=== PATIENT | male | born 1935 | race Caucasian/White ===

== ENCOUNTER → 2022-07-20 | Outpatient (CLI) | payer MEDICARE ==
[~2022-07-20] MED LIST: IOHEXOL 350 MG/ML 100ML INFUS..BTL IV ONE
== END | disposition home or self-care (01) ==
LOC: RAH 07:25
PROVIDERS: ATTEND Internal Medicine Cardiovascular Disease
DX: I65.23 Occlusion and stenosis of bilateral carotid arteries (principal); I77.9 Disorder of arteries and arterioles, unspecified; I25.10 Atherosclerotic heart disease of native coronary artery without angina pectoris
CPT/HCPCS: 70498; Q9967

== ENCOUNTER 2023-03-21 07:09 | Day surgery (SDC) | payer MEDICARE ==
[2023-03-17 09:14] VITALS: BP 161/68; PULSE 64; RESP 16
[2023-03-17 09:22] LABS: BASOPHILS # (AUTO) 0.06 K/uL (0.00-0.20); BASOPHILS % (AUTO) 0.6 % (0.0-5.0); EOSINOPHILS # (AUTO) 0.24 K/uL (0.00-0.70); EOSINOPHILS % (AUTO) 2.5 % (0.0-8.0); HEMATOCRIT 38.2 % (42-54); IMMATURE GRANULOCYTE ABSOLUTE 0.07 K/uL (0-1); LYMPHOCYTES % (AUTO) 20.8 % (21.0-51.0); MEAN CORPUSCULAR HEMOGLOBIN 32.2 pg (27.0-33.0); MEAN CORPUSCULAR VOLUME 94.6 fL (79-99); MONOCYTES # (AUTO) 0.8 K/uL (0.1-1.0); NEUTROPHILS # (AUTO) 6.4 K/uL (1.8-7.7); NEUTROPHILS % (AUTO) 67.4 % (40.0-77.0); PLATELET COUNT (AUTO) 185 K/uL (130-400); RED BLOOD CELL COUNT(AUTO) 4.04 MIL/uL (4.50-6.20); RED CELL DISTRIBUTION WIDTH 13.2 % (11.0-15.5); WHITE BLOOD COUNT (AUTO) 9.5 K/uL (4.8-10.8)
[2023-03-17 09:32] LABS: INR 0.94 (0.85-1.15)
[2023-03-17 09:39] LABS: CREATININE 1.3 mg/dL (0.5-1.5); POTASSIUM 3.8 mmol/L (3.5-5.1)
[2023-03-21] VITALS (10 sets, daily range): BP systolic 115–155; BP diastolic 44–66; PULSE 44–61; RESP 14–16
[~2023-03-21] VITALS: Ht 168.9 cm; Wt 94.0 kg
[~2023-03-21 07:09] MED LIST changes: +AEC81 PO; +CHOL200013 PO; +CLOP-31 PO; +HYDR12.54 PO; -IOHEXOL 350 MG/ML 100ML INFUS..BTL IV ONE; +LOSA100T59 PO; +METO-391 PO; +PRAV40TA3 PO
[2023-03-21] MEDS ORDERED: 0.9%NACL 1000ML 1,000 ML IV ONE (07:57)
[2023-03-21] MEDS ORDERED: HEPARIN 10,000 UNIT/10ML (1,000 UNIT/ML) VIAL ONE (09:12)
[2023-03-21] MEDS ORDERED: LIDOCAINE HCL 400MG/20ML VIAL ONE (09:12)
[2023-03-21] MEDS ORDERED: NITROGLYCERIN 50MG VIAL ONE (09:12)
[2023-03-21] MEDS ORDERED: IOHEXOL-350 50ML VIAL IV ONE (09:12)
[2023-03-21] MEDS ORDERED: IOHEXOL 350 MG/ML 100ML INFUS..BTL IV ONE (09:12)
[2023-03-21] MEDS ORDERED: MIDAZOLAM HCL 1 MG/ML 2ML VIAL ONE (09:35)
[2023-03-21] MEDS ORDERED: FENTANYL CITRATE PF 50 MCG/1 ML 2ML VIAL ONE (09:35)
[2023-03-21] MEDS ORDERED: 0.9%NACL 1000ML 1,000 ML IV SCH (10:30)
[2023-03-21] MEDS ORDERED: DEXTROSE 50%-WATER 50 ML DISP.SYRIN IV PRN (10:30)
[2023-03-21] MEDS ORDERED: HYDRALAZINE 20MG/ML VIAL IV PRN (10:30)
[2023-03-21] MEDS ORDERED: GLUCAGON 1MG KIT 1 MG ML IM PRN (10:30)
[2023-03-21] MEDS ORDERED: ACETAMINOPHEN 500 MG TABLET ONE (13:45)
== END 2023-03-21 14:40 | disposition home or self-care (01) ==
LOC: DAH 07:09
PROVIDERS: ATTEND Internal Medicine Cardiovascular Disease
DX: I65.22 Occlusion and stenosis of left carotid artery (principal); I10 Essential (primary) hypertension; E78.5 Hyperlipidemia, unspecified; K21.9 Gastro-esophageal reflux disease without esophagitis; E66.9 Obesity, unspecified; Z79.01 Long term (current) use of anticoagulants; Z79.899 Other long term (current) drug therapy; Z86.73 Personal history of transient ischemic attack (TIA), and cerebral infarction without residual deficits; Z79.82 Long term (current) use of aspirin; Z80.3 Family history of malignant neoplasm of breast; Z83.3 Family history of diabetes mellitus; Z68.31 Body mass index [BMI] 31.0-31.9, adult
CPT/HCPCS: 80048; 85025; 85610; 85730; 36415; 36223; 36225; C1894 ×2; J3010; J3490 ×2; J7030; J1644 ×2; J2250; Q9967; A4215; A4222; A4221; A4663; A4216; A4606; Q9965; A4223 ×3; 36226; 75710; 99156